=== PATIENT | male | born 1965 | race Caucasian/White ===

== ENCOUNTER 2017-12-30 09:09 | Emergency (ER) | payer MEDICARE, OTHER ==
--- NOTE | 2017-12-30 09:20 | ED Physician Documentation ---
Sore Throat/Dental Pain - HISTORIAN Historian: patient - HPI Chief Complaint: Dental Pain Additional Information: Patient states that he has had a broken tooth some tiem ago, yesterday started to have some pain and swelling to the left facial area. Has had a low grade fever. Has been nauseated some, no vomiting noted. - ROS CONST: no problems - PAST HX Past History: other (HTN) Other History: diabetes Type 2 Allergies/Adverse Reactions: Allergies Allergy/AdvReac Type Severity Reaction Status Date / Time codeine Allergy Intermediate Hives Verified 12/30/17 09:22 Penicillins Allergy Intermediate Itchy Skin Verified 12/30/17 09:22 Home Medications: Ambulatory Orders Medication Instructions Recorded Clindamycin HCl [Cleocin] 300 mg PO QID #40 capsule 12/30/17 Ondansetron HCl Rapdis [Zofran Odt] 4 mg PO Q6 PRN #15 tab 12/30/17 - SOCIAL HX Smoking History: less than 1 pack/day (1/2 ppd) Alcohol Use: none Drug Use: none - FAMILY HX Family History: No - VITAL SIGNS Vital Signs: Vital Signs Temp Pulse Resp BP Pulse Ox 132/68 04/23/16 18:21 Dental Pain Physical Exam - EXAM General Appearance: alert, mild distress Mouth/Throat: lips nml, pharynx nml, no air way problems, dental tenderness, gum swelling around teeth, widespread dental decay, other (swelling). No: gums nml (swelling left upper gum area), pharyngeal erythema Ear/Nose: nml inspection Abdomen: soft, no organomegaly, normal bowel sounds, no abdominal bruit, no distension Extremities: non-tender Skin: other (swelling and mild warmth to the left cheeck area) Neuro/Psych: No: weakness, numbness Discharge Clincal Impression: Dental caries Referrals: Primary Doctor,No [Primary Care Provider] - 2 Days Additional Instructions: Gargle with salt water. Avoid hot or cold foods. You need to see a dentist for further definative treatment. Take Clindamycin 4 times a day until gone. Take Ibuprofen 200mg tablets, 3-4 tablets three times a day with food. To see you primaary care provider or return to the ED for further care if symptoms do not improve. Condition: Stable Disposition: 01 HOME, SELF-CARE Decision to Admit: NO Date of Decison to Admit: 12/30/17 Decision Time: 09:26
[2017-12-30] MEDS ORDERED: KETOROLAC TROMETHAMINE 60 MG/2 ML VIAL IM ONE (09:38)
[2017-12-30 10:09] VITALS: BP 158/92
== END 2017-12-30 09:56 | disposition home or self-care (01) ==
LOC: ED 09:09
DX: K02.9 Dental caries, unspecified (principal)
CPT/HCPCS: 96372; 99283; J1885